=== PATIENT | male | born 1990 | race Caucasian/White ===

== ENCOUNTER 2019-03-03 11:48 | Emergency (ER) | payer BC ==
[~2019-03-03] VITALS: Ht 188 cm; Wt 93.0 kg
--- OUTSIDE RECORDS SUMMARY | 2019-03-03 11:52 | XMS REPORT | Encounter Summary ---
Author Organization Unknown Address [address] [place] [address] Phone [phone] Care Team Providers Care Mammal Control Agent Name Role Phone Tai Valderrama MD 3 [phone] Reason for Visit Medical Complaint Instructions 1. Sore throat symptom sore throat: care instructions rapid strep group A, throat 2. Generalized aches and pains rapid flu (A+B) 3. Seasonal allergy seasonal allergies: care instructions Medrol (Anurag) 4 mg tablets in a dose pack 4. Body mass index 25-29 - overweight Discussion Note Follow up with PCP regarding the maintenance of your overall health, weight management, dietary and exercise counseling. Take Flonase twice a day- one spray in each nostril as needed for allergies. Drink lots of water and take Jeanie, Claritin, or Zyrtec; OTC cough syrup for cough;follow up with PCP within 2-3 days should symptoms worsen. Plan of Care Patient Instructions Follow up with PCP or go to ER or urgent care if symptoms get worsen Reminders Provider Appointments None recorded. Lab Rapid Flu (A+B) 03/07/2018 [facility] Rapid Strep Group a, Throat 03/07/2018 [facility] Referral None recorded. Procedures None recorded. Surgeries None recorded. Imaging None recorded. Medications Name Start Date clindamycin HCl 300 mg capsule Depo-Medrol 80 mg/mL suspension for injection 80 mg/mL IM injectable x 1 Medrol (Anurag) 4 mg tablets in a dose pack Take as directed in the pack Medications Administered None recorded. Vitals Height Weight BMI Blood Pressure 6 ft 2 in 200 lbs 25.7 kg/m2 120/70 mm[Hg] Lab Results Date Name Specimen Result Interpretation Description Value Range Status Address 03/07/2018 Rapid Flu (A+B) Influenza a negative [facility]: [address] [place] [address] Influenza B negative [facility]: [address] [place] [address] Rapid Strep Group a, Throat Result negative [facility]: [address] [place] [address] Swab Location Left and Right tonsillar pillars [facility]: [facility] Allergies Code Code System Name Reaction Severity Status Onset NKDA Problems None recorded. Procedures None recorded. Vaccine List None recorded. Social History Smoking Status Never Smoker Past Encounters 03/07/2018 Sore Throat Symptom; Generalized Aches and Pains; Seasonal Allergy; Body Mass Index 25-29 - Overweight [facility]: [address] [place] [address], Ph. [phone] History of Present Illness Throat-Oral Complaint Reported By: Patient HPI: Location: throat. Quality: sore throat. Severity: mild, moderate. Duration: 3 days. Onset/Timing: sudden. Context: no sick contacts, no foreign travel, non-smoker, allergies. Modifying factors: OTC medication. Associated Symptoms: no fever, no headache, no sputum production, no shortness of breath, no wheezing, no change in number of pillows needed to sleep at night, no sweats, no significant weight gain, no significant weight loss, no vomiting, no diarrhea, no rash, no nausea, body aches, sore throat Review of Systems:ROS as noted in the HPI Review of Systems Basic Reported By: Patient Physical Exam Adult Basic, Adult Male Complete Reported By: Patient Constitutional: General Appearance: healthy-appearing, well-nourished, well-developed. Level of Distress: NAD. Ambulation: ambulating normally Nxv-Dzsz-Vbxvo-Throat: Ears: no lesions on external ear, no outer ear tenderness, EACs clear, TMs clear, TM mobility normal. Hearing: no hearing loss. Nose: no lesions on external nose, nares patent, no septal deviation, nasal passages clear, no sinus tenderness, post nasal drip. Lips, Teeth, and Gums: no mouth or lip ulcers, no bleeding gums, normal dentition. Oropharynx: moist mucous membranes, no exudates, tonsils not enlarged, erythema Neck: Lymph Nodes: no cervical LAD Lungs: Respiratory effort: no dyspnea, no tachypnea, no use of accessory muscles, no intercostal retractions. Auscultation: breath sounds normal, good air movement Cardiovascular: Heart Auscultation: RRR, no murmurs
--- OUTSIDE RECORDS SUMMARY | 2019-03-03 11:52 | XMS REPORT | Encounter Summary ---
Author Organization Unknown Address [address] [place] [address] Phone [phone] Care Team Providers Care Associate Sales Name Role Phone Tai Valderrama MD 3 [phone] Reason for Visit Medical Complaint Instructions 1. Pain in throat sore throat: care instructions rapid strep group A, throat Depo-Medrol 80 mg/mL suspension for injection Discussion Note: None recorded. Plan of Care Patient Instructions salt water gargle as needed. follow up pcp Reminders Provider Appointments None recorded. Lab Rapid Strep Group a, Throat 09/03/2016 [facility] Referral None recorded. Procedures None recorded. Surgeries None recorded. Imaging None recorded. Medications Name Start Date Depo-Medrol 80 mg/mL suspension for injection 80 mg/mL IM injectable x 1 Medications Administered Name Date Depo-Medrol 80 mg/mL suspension for injection 80 mg/mL IM injectable x 1 [id number]:15:43 Vitals Height Weight BMI Blood Pressure 6 ft 2 in 200 lbs 25.7 128/80 Lab Results Date Name Result Description Value Range Status Rapid Strep Group a, Throat Result negative Swab Location Left and Right tonsillar pillars Allergies Name Reaction Severity Onset NKDA Problems None recorded. Procedures None recorded. Vaccine List None recorded. Social History Smoking Status Never Smoker Past Encounters 09/03/2016 Pain in Throat [facility]: [address] [place] [address], Ph. History of Present Illness Throat-Oral Complaint Reported By: Patient HPI: Location: throat. Quality: sore throat. Duration: 7 days. Onset/Timing: gradual. Context: no sick contacts, no foreign travel, non-smoker. Modifying factors: OTC medication. Associated Symptoms: no sputum production, no shortness of breath, no wheezing, no change in number of pillows needed to sleep at night, no sweats, no significant weight gain, no significant weight loss, no morning cough, no vomiting, no diarrhea, no rash, no nausea, sore throat Review of Systems:ROS as noted in the HPI Review of Systems Basic Reported By: Patient Physical Exam Adult Basic, Adult Male Complete Reported By: Patient Constitutional: General Appearance: healthy-appearing, well-nourished, well-developed. Level of Distress: NAD. Ambulation: ambulating normally Psychiatric: Mental Status: active and alert Eyes: Lids and Conjunctivae: non-injected, no discharge Jzj-Fgmc-Umqcb-Throat: Ears: no lesions on external ear, no outer ear tenderness, EACs clear, TMs clear, TM mobility normal. Hearing: no hearing loss. Nose: no lesions on external nose, nares patent, no septal deviation, nasal passages clear, no sinus tenderness, no nasal discharge. Oropharynx: moist mucous membranes, no erythema, no exudates, tonsils not enlarged Neck: Neck: trachea midline. Lymph Nodes: no cervical LAD Lungs: Respiratory effort: no dyspnea, no tachypnea, no use of accessory muscles, no intercostal retractions. Auscultation: breath sounds normal, good air movement Cardiovascular: Heart Auscultation: RRR, no murmurs
--- OUTSIDE RECORDS SUMMARY | 2019-03-03 11:52 | XMS REPORT | Continuity of Care Document ---
Author Author [employer] Address Unknown Phone Unavailable Care Team Providers Care Fiber Locking Supervisor Name Role Phone [employer] Unavailable Unavailable Problems Problem Status Onset Date Classification Date Reported Comments Source Body mass index 25-29 - overweight 03/07/2018 Diagnosis 03/07/2018 [facility] Seasonal allergy 03/07/2018 Diagnosis 03/07/2018 [facility] Generalized aches and pains 03/07/2018 Diagnosis 03/07/2018 [facility] Sore throat symptom 03/07/2018 Diagnosis 03/07/2018 [facility] Pain in throat 09/03/2016 Diagnosis 09/03/2016 [facility] Medications Medication Details Route Status Patient Instructions Ordering Provider Order Date Source Clindamycin 300 MG Oral Capsule clindamycin HCl 300 mg capsule Active [facility] 1 ML methylprednisolone acetate 80 MG/ML Injection [Depo-Medrol] Depo-Medrol 80 mg/mL suspension for injection 80 mg/mL IM injectable x 1 Active [facility] Medrol (Anurag) 4 mg tablets in a dose pack Medrol (Anurag) 4 mg tablets in a dose pack Take as directed in the pack Active [facility] Allergies, Adverse Reactions, Alerts No Known Medication Allergies Immunizations No Data Provided for This Section Results Order Name Results Value Reference Range Date Interpretation Comments Source Influenza A negative 03/07/2018 [facility] Influenza B negative 03/07/2018 [facility] RESULT negative 03/07/2018 [facility] SWAB LOCATION Left and Right tonsillar pillars 03/07/2018 [facility] RESULT negative 09/03/2016 [facility] SWAB LOCATION Left and Right tonsillar pillars 09/03/2016 [facility] Pathology Reports No Data Provided for This Section Diagnostic Reports No Data Provided for This Section Consultation Notes No Data Provided for This Section Discharge Summaries No Data Provided for This Section History and Physicals No Data Provided for This Section Vital Signs Vital Sign Value Date Comments Source Diastolic (mm Hg) 70 03/07/2018 [facility] Height 74 03/07/2018 [facility] Systolic (mm Hg) 120 03/07/2018 [facility] Weight 200 03/07/2018 [facility] Diastolic (mm Hg) 80 09/03/2016 [facility] Height 74 09/03/2016 [facility] Systolic (mm Hg) 128 09/03/2016 [facility] Weight 200 09/03/2016 [facility] Encounters Location Location Details Encounter Type Encounter Number Reason For Visit Attending Provider ADM Date DC Date Status Source [place] - [facility] - [id number] Tristan Patiño, [facility] [employer] [facility]: [address] [place] [address], Ph. [id number] Tristan Patiño 09/03/2016 [facility] [place] - [facility] [id number] Tristan Patiño, [employer] [employer]: [address] [place] [address], Ph. [id number] Tristan Patiño 09/03/2016 [facility] [place] - [facility] [id number] Minoo Crawford, [employer]: [address] [place] [address], Ph. [phone] [id number] Minoo Crawford 03/07/2018 [facility] Procedures No Data Provided for This Section Assessment and Plan No Data Provided for This Section Plan of Care No Data Provided for This Section Social History Social History Date Source Smoking Status Never Smoker 09/03/2016 [facility] Family History No Data Provided for This Section Advance Directives No Data Provided for This Section Functional Status No Data Provided for This Section
--- OUTSIDE RECORDS SUMMARY | 2019-03-03 11:52 | XMS REPORT | Encounter Summary ---
Author Organization Unknown Address [address] [place] [address] Phone [phone] Care Team Providers Care Clinical Research Coordinator Name Role Phone Tai Valderrama MD 3 [phone] Reason for Visit Medical Complaint Instructions 1. [...] injection 80 mg/mL IM injectable x 1 [id number]:15:43 Vitals Height Weight BMI Blood Pressure 6 [...] Past Encounters 09/03/2016 Pain in Throat [facility]: [address] [place] [address], Ph. History of Present Illness Throat-Oral Complaint [...] Eyes: Lids and Conjunctivae: non-injected, no discharge Lsq-Ydjt-Waxzz-Throat: Ears: no lesions on external ear, no [...]
--- NOTE | 2019-03-03 12:50 | Diagnostic Imaging Report ---
CT BRAIN [facility] HISTORY: 28-year-old male with dizziness and loss of speech COMPARISON: None. TECHNIQUE: Noncontrast axial scans were obtained from skull base to the vertex. Coronal and sagittal reconstructions obtained from the axial data. One or more of the following dose reduction techniques were used: Automated exposure control, adjustment of the mA and/or kV according to patient size, and/or utilization of iterative reconstruction technique. DISCUSSION: Scalp/Skull: Unremarkable. Brain sulci: Appropriate for patient's age. Ventricles: Normal in size and configuration. No hydrocephalus. Extra-axial spaces: No masses or fluid collections. Parenchyma: No abnormal densities. No mass, hemorrhage, or large vascular territory acute infarct. Dural sinuses: No abnormal densities. Sellar/Suprasellar region: Intact. Skull base: Intact. Incidental findings: None. IMPRESSION: No acute intracranial abnormalities. This preliminary report was dictated by Dr. Corey Funez M.D. neuroradiology fellow at 1249 hours on 03/03/2019. Agree with the report. Signed by: DR Asad Cody M.D. on 03/03/2019 1:53 PM
[2019-03-03] MEDS ORDERED: ONDANSETRON HCL INJ 2MG/ML 2ML 2 MG/ML VIAL IV ONE (13:00)
[2019-03-03] MEDS ORDERED: KETOROLAC TROMETHAMINE 30 MG/ML VIAL IV ONE (13:00)
[2019-03-03] MEDS ORDERED: DEXAMETHASONE SOD PHOS 10 MG/1 ML VIAL IV ONE (13:00)
[2019-03-03] MEDS ORDERED: SODIUM CHLORIDE 0.9% 1000ML 1,000 ML IV STA (13:00)
[2019-03-03] MEDS ORDERED: SODIUM CHLORIDE 0.9% 1000ML 1,000 ML ONE (13:17)
[2019-03-03 15:58] VITALS: BP 131/79
== END 2019-03-03 16:13 | disposition other institution (70) ==
LOC: FSED 11:48
DX: R53.1 Weakness (principal); R41.82 Altered mental status, unspecified; R51 Headache; G45.9 Transient cerebral ischemic attack, unspecified
CPT/HCPCS: 70450; 80053; 85025; 85610; 93005; 99284; J1100; J1885; J2405; J7030